=== PATIENT | male | born 1950 | race Caucasian/White ===

== ENCOUNTER 2022-12-26 11:57 | Inpatient (IN) | payer MEDICARE, SELFPAY ==
[2022-12-26] VITALS (12 sets, daily range): BP systolic 121–189; BP diastolic 52–108; PULSE 56–101; RESP 18–32; TEMP 36.1–36.9; O2SAT 96–100; BMI 26.3
--- NOTE | 2022-12-26 11:58 | XR_ITS ---
WS: [id number] XR chest 1V portable [id number] REASON FOR EXAM: dyspnea/cough FINDINGS: Mild tortuosity of the thoracic aorta with normal heart size. Calcified granulomatous disease in both hemithoraces. No active pulmonary parenchymal or pleural disease is identified. No significant abnormality of the bony thorax. IMPRESSION: No acute chest abnormality.
[2022-12-26 12:13] LABS: Basophils % 0.5 %; Eosinophils % 0.3 %; Hematocrit 39.3 % (37-53); Lymphocytes # 1.1 10^3/uL (0.8-4.8); Lymphocytes % 19.7 %; Mean Corpuscular HGB Conc 33.8 g/dL (30-55); Mean Corpuscular Hemoglobin 34.4 pg (27-33); Mean Corpuscular Volume 101.6 fl (82-101); Mean Platelet Volume 10.9 fL (7.4-10.4); Monocytes # 0.3 10^3/uL (0.2-0.9); Monocytes % 5.9 %; Neutrophils % 73.3 %; Nucleated Red Blood Cells % 0 %; Platelet Count 187 10^3/cmm (157-399); Red Blood Count 3.87 10^6/uL (3.85-5.65); White Blood Count 5.74 10^3/uL (3.29-11.43)
--- NOTE | 2022-12-26 12:19 | ECG_ITS ---
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 Measurements Intervals [place] Rate: 54 P: 58 [place]: 202 QRS: 34 QRSD: 79 T: 40 QT: 487 QTc: 462 Interpretive Statements SINUS BRADYCARDIA SEPTAL MYOCARDIAL INFARCTION , OF INDETERMINATE AGE [40+ ms Q WAVE IN V1/V2] No previous ECG available for comparison Electronically Signed On 12-26-2022 19:07:24 CDT by Brooke Ribeiro M.D. [id number]
[2022-12-26 12:37] LABS: Alanine Aminotransferase 109 U/L (0-41); Albumin Level 4.4 g/dL (3.5-5.2); Alkaline Phosphatase 43 U/L (40-130); Aspartate Amino Transferase 151 U/L (0-40); Blood Urea Nitrogen 19 mg/dL (8-23); Calcium 9.2 mg/dL (8.5-10.5); Carbon Dioxide 16 mmol/L (22-29); Chloride 101 mmol/L (98-107); Globulin 2.7 g/dL (1.3-4.6); Glucose 164 mg/dL (65-115); Osmolality Calculated 294 mOsm/kg (285-295); Sodium 139 mmol/L (136-145); Total Bilirubin 0.5 mg/dL (0.15-1.2); Total Protein 7.1 g/dL (6.6-8.7)
[2022-12-26 12:40] LABS: Troponin(5th) Baseline 18 ng/L (0-15)
--- NOTE | 2022-12-26 12:45 | PC.NURSE ---
pt had urge to defecate, bloody mucus in commode
--- NOTE | 2022-12-26 12:48 | PC.PHAR ---
pt states he takes care of his own medications-pt states he stop taking his amlodipine 2.5mg daily about 4 months ago ext shows last filled 04/28/22 90d/s-pt states he is only taking the medications entered
[2022-12-26 13:14] LABS: Thyroid Stimulating Hormone 4.62 uIU/mL (0.27-4.20)
--- NOTE | 2022-12-26 13:17 | CT_ITS ---
WS: [id number] CT ABDOMEN PELVIS TECHNIQUE: Contrast-enhanced CT of the abdomen and pelvis with coronal and sagittal reformatted image s. CLINICAL INFORMATION: abd pain COMPARISON: None. DLP: 653.[address] scans at [facility] use at least one of these dose optimization techniques: automated e xposure control; mA and/or kV adjustment per patient size (includes targeted exams where dose is matc hed to clinical indication); or iterative reconstruction. FINDINGS: Mild diffuse wall thickening and enhancement involving the sigmoid colon with surrounding induration suspicious for colitis. This extends to the rectum. Additional mild submucosal enhancement involving the LEFT colon and splenic flexure. Recommend correlation for colitis. Small amount of fluid in the p minoo about the sigmoid colon. Diffuse fatty filtration of the liver. Hepatomegaly. Normal spleen. Tiny esophageal hiatal hernia wit h fluid distended stomach with air-fluid levels. No evidence of high-grade obstruction. Portal vein a nd splenic vein are patent. Fatty atrophy of the pancreas. Normal gallbladder. Normal caliber abdomin al aorta. Celiac and SMA are patent. Thickening of the LEFT adrenal gland. RIGHT adrenal gland is normal. No hydronephrosis. Normal renal parenchymal enhancement. A few tiny renal cysts. Urine distended bladder. Prostate measures 3.9 cm. Tiny fat-containing umbilical hernia. Small fat-co ntaining LEFT inguinal hernia. Lung bases are well aerated. A few small nodules in the LEFT lower lobe the largest measuring 6 mm. A few small noncalcified nodules in the RIGHT middle lobe partially visualized. RIGHT lower lobe nodul e measuring 7 mm. Additional RIGHT lower lobe nodule along the diaphragm measuring 6.5 mm. Chronic spondylolysis L5-S1 with slight anterolisthesis. IMPRESSION: 1. Diffuse wall thickening with enhancement and surrounding induration involving the sigmoid colon e xtending to the rectum suspicious for proctocolitis. 2. Less prominent thickening and enhancement involving the LEFT descending colon and splenic flexure . 3. No evidence of small or large bowel obstruction. 4. Hepatomegaly diffuse fatty infiltration. 5. A few small noncalcified nodules in the lung bases largest measuring 7 mm. This can be followed u p with chest CT. 6. No other acute findings.
[2022-12-26] MEDS: sodium chloride 0.9% 1,000 ML 999 ML IV ×2 (13:22→15:21)
--- NOTE | 2022-12-26 13:47 | ED_ITS ---
HPI - Syncope General: Chief Complaint: Syncope Stated Complaint: syncopal episode Time Seen by Provider: 12/26/22 11:57 Source: patient Mode of arrival: EMS History of Present Illness: 72-year-old male presents emergency room with syncope. He had a syncopal episode did not any symptoms prior. No seizure-like activity was reported by bystanders he fell did not strike his head has not had any vomiting since then his vision has been normal no focal neurologic deficits. After this episode he had bright red blood per rectum with a bowel movement has not had any recurrence since. Denies chest pain or shortness of breath. He is having some mild abdominal cramping. MD complaint: loss of consciousness Onset (ago): hour(s) Prodromal symptoms: none Witnessed: Yes - by Bystander Associated symptoms: Reports abdominal pain (Abdominal cramping); Deny chest pain, fever(s), headache(s), lightheadedness, nausea, short of breath, vertigo or weakness Treatments prior to arrival: none Review of Systems Const: Denies: fever(s), chills, fatigue or malaise ENMT: Denies: throat pain, ear or mastoid pain, nasal discharge or nasal congestion Card: Denies: chest pain, palpitations, edema, lightheadedness, dyspnea on exertion or orthopnea Resp: Denies: dyspnea, productive cough or non-productive cough GI: Reports: abdominal pain (Abdominal cramping); Denies: nausea, vomiting, hematemesis, coffee ground emesis, diarrhea, constipation, bloating, hematochezia or melena : Denies: flank pain, dysuria, urinary frequency or urinary urgency Skin/Breast: Denies: rash or pruritus Neuro: Denies: headache(s) or vertigo [facility] ED PFSH: Medical History Alcohol abuse Hypertension Physical Exam Const: GENERAL APPEARANCE: cooperative and comfortable ORIENTATION/CONSCIOUSNESS: Yes awake, Yes oriented to person, Yes oriented to place and Yes oriented to time HENMT: COMMON NORMALS: normocephalic, atraumatic and hearing grossly normal bilaterally HEAD & SCALP: normocephalic and atraumatic Resp: COMMON NORMALS: normal respiratory effort, No retractions, No use of accessory muscles and clear to auscultation bilaterally AUSCULTATION: clear to auscultation bilaterally Cardio: COMMON NORMALS: regular rate, regular rhythm and No murmurs present (Cardio) RATE: regular rate RHYTHM: regular rhythm GI: COMMON NORMALS: Soft to palpation and No hepatosplenomegaly present AUSCULTATION: Yes normoactive bowel sounds PALPATION: Yes Soft to palpation, No Tenderness to palpation present (GI), No Guarding due to palpation present (GI) and Yes No hepatosplenomegaly present Extremity: COMMON NORMALS: normal to inspection, capillary refill normal, no clubbing, cyanosis or edema, no calf tenderness and no pedal edema Neuro: SENSORIUM/ORIENTATION: Yes oriented to person, Yes oriented to place and Yes oriented to time Skin: COMMON NORMALS: no rashes or lesions noted GENERAL SKIN EXAM: no rashes or lesions noted Course Vital Signs: Vital signs: Vital Signs Temperature 98.8 F 12/28/22 04:00 Pulse Rate 81 12/28/22 12:43 Respiratory Rate 16 12/28/22 12:43 Blood Pressure 153/93 12/28/22 12:43 Pulse Oximetry 98 12/28/22 12:43 Oxygen Delivery Me thod Room Air 12/28/22 12:00 MDM - Syncope Medical Decision Making Patient has syncopal episode without significant prodromal symptoms. He has mild relative bradycardia however he is generally seems to be asymptomatic of that his blood pressure is actually slightly elevated. Labs significant for transaminitis but he does drink fairly regularly which is likely the cause. Admit for syncope bradycardia. Discussed with Dr. Thakkar orders written Medical Records I reviewed the patient's medical records. Lab Data I reviewed the patient's lab results. 12/28/22 03:18 12/28/22 03:18 Radiology Impressions Liver Ultrasound 12/26/22 17:20 IMPRESSION: Fatty liver. Laboratory Results WBC 5.74 10^3/uL (3.29-11.43) 12/26/22 12:04 RBC 3.87 10^6/uL (3.85-5.65) 12/26/22 12:04 Hgb 13.30 g/dL (11.27-16.99) 12/26/22 12:04 Hct 39.3 % (37-53) 12/26/22 12:04 MCV 101.6 fl (82-101) H 12/26/22 12:04 MCH 34.4 pg (27-33) H 12/26/22 12:04 MCHC 33.8 g/dL (30-55) 12/26/22 12:04 RDW 12.0 % (12.1-15.1) L 12/26/22 12:04 Plt Count 187 10^3/cmm (157-399) 12/26/22 12:04 MPV 10.9 fL (7.4-10.4) H 12/26/22 12:04 Neut % (Auto) 73.3 % 12/26/22 12:04 Lymph % (Auto) 19.7 % 12/26/22 12:04 [place] % (Auto) 5.9 % 12/26/22 12:04 Eos % (Auto) 0.3 % 12/26/22 12:04 Baso % (Auto) 0.5 % 12/26/22 12:04 Neut # (Auto) 4.20 10^3/uL (1.8-7.7) 12/26/22 12:04 Lymph # (Auto) 1.1 10^3/uL (0.8-4.8) 12/26/22 12:04 [place] # (Auto) 0.3 10^3/uL (0.2-0.9) 12/26/22 12:04 Eos # (Auto) 0.0 10^3/uL (0.0-0.8) 12/26/22 12:04 Baso # (Auto) 0.0 10^3/uL (0.0-0.1) 12/26/22 12:04 Nucleated RBC % (auto) 0 % 12/26/22 12:04 Nucleated RBCs # 0.0 /100WBC 12/26/22 12:04 Sodium 139 mmol/L (136-145) 12/26/22 12:04 Potassium 4.0 mmol/L (3.5-5.1) 12/26/22 12:04 Chloride 101 mmol/L (98-107) 12/26/22 12:04 Carbon Dioxide 16 mmol/L (22-29) L 12/26/22 12:04 Anion Gap 26.0 (5-19) H 12/26/22 12:04 BUN 19 mg/dL (8-23) 12/26/22 12:04 Creatinine 1.3 mg/dL (0.7-1.2) H 12/26/22 12:04 GFR Calculation Not Reportable 12/26/22 12:04 Glucose 164 mg/dL (65-115) H 12/26/22 12:04 Calculated Osmolality 294 mOsm/kg (285-295) 12/26/22 12:04 Calcium 9.2 mg/dL (8.5-10.5) 12/26/22 12:04 Iron 72 ug/dL (59-158) 12/26/22 12:04 TIBC 239 mcg/dl 12/26/22 12:04 % Saturation 30.1 % (20-50) 12/26/22 12:04 Unsat Iron Binding 167 ug/dL (112-347) 12/26/22 12:04 Total Bilirubin 0.5 mg/dL (0.15-1.2) 12/26/22 12:04 AST 151 U/L (0-40) H 12/26/22 12:04 ALT 109 U/L (0-41) H 12/26/22 12:04 Alkaline Phosphatase 43 U/L (40-130) 12/26/22 12:04 Troponin T Baseline 18 ng/L (0-15) H 12/26/22 12:04 Troponin T 120 Minute 13.32 ng/L (0-15) 12/26/22 13:55 Delta Troponin T -4.68 ABS# (0-10) L 12/26/22 13:55 Total Protein 7.1 g/dL (6.6-8.7) 12/26/22 12:04 Albumin 4.4 g/dL (3.5-5.2) 12/26/22 12:04 Globulin 2.7 g/dL (1.3-4.6) 12/26/22 12:04 Vitamin B12 471 pg/mL (232-1245) 12/26/22 12:04 Procalcitonin 0.19 ng/mL (0-0.5) 12/26/22 12:04 TSH 4.62 uIU/mL (0.27-4.20) H 12/26/22 12:04 Free T4 1.07 ng/dL (0.82-1.77) 12/26/22 12:04 Free T3 2.3 PG/ML (2.0-4.4) 12/26/22 12:04 Ethyl Alcohol 151 mg/dL (0-10) H 12/26/22 13:55 Hepatitis A IgM Ab Non-reactive (Nonreactive) 12/26/22 12:04 Hep Bs Antigen Non-reactive (Nonreactive) 12/26/22 12:04 Hep Bs Antibody 3.5 (11.5-1000) L 12/26/22 12:04 Hep B Core Total Ab Non-reactive (Nonreactive) 12/26/22 12:04 Hepatitis C Antibody Non-reactive (Nonreactive) 12/26/22 12:04 HIV 1&2 Ab & HIV 1 Ag Non-reactive (Non-Reactiv) 12/26/22 12:04 HIV 1&2 Antibody Non-reactive (Non-Reactiv) 12/26/22 12:04 All radiology interpretation(s) finalized by discharge Discharge Plan Discharge Patient Disposition: Admitted As Inpatient Admit Provider: Kapil Thakkar Clinical Impression: Syncope and collapse, EITAN (acute kidney injury), Bright red blood per rectum, Transaminitis Condition: Stable Discharge Diet: Cardiac Discharge Activity: Resume usual activity and Increase activity as tolerated Coding Level of Care Code 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
--- NOTE | 2022-12-26 13:58 | ECG_ITS ---
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 Measurements Intervals [place] Rate: 66 P: 46 SD: 192 QRS: 18 QRSD: 77 T: 49 QT: 402 QTc: 423 Interpretive Statements SINUS RHYTHM SEPTAL MYOCARDIAL INFARCTION , PROBABLY OLD [40+ ms Q WAVE IN V1/V2] Compared to ECG 12/26/2022 12:19:59 Sinus bradycardia no longer present Myocardial infarct finding still present Electronically Signed On 12-26-2022 19:17:40 CDT by Brooke Ribeiro M.D. [id number]
[2022-12-26] MEDS: iohexol 350 mg/mL 500 mL Btl (per mL) IV (14:41)
[2022-12-26 14:48] LABS: Troponin 5 2HR 13.32 ng/L (0-15); Troponin 5 2HR Delta -4.68 ABS# (0-10)
--- NOTE | 2022-12-26 15:51 | PM.HP ---
Providers/Chief Complaint Admitting Physician: Kapil Thakkar MD Chief Complaint: syncopal episode History of Present Illness Rupert Garcia is a 72 year old male with past medical history of hypertension not taking any medication presented to the ER today after having episode of syncope and collapse while at work. As per the patient he has been on and off wobbly on his feet more so in the evening after work for last 1 week. Today while working without any prior aura he collapsed and as per bystanders he lost consciousness for around 5 minutes. Patient woke up after 5 minutes without any memory of losing consciousness but does remember falling down. Denies hitting his head or recent trauma. Denies any headache, chest pain, or other prior or after the event. Denies any bowel or bladder accidents. Denies any new medications. Patient does take nitro boost which is prescribed to him by someone online for high blood pressures but did not take that medication today. Similar event has never happened in the past. While in the ER he developed lower abdominal pain and since then whenever he is having abdominal cramps he passes flatus and with each flatus he is passing blood. He denies having any endoscopy or colonoscopy in the past. Denies any fever. Gives history of daily alcohol use with 4 cocktails shots every night. He gives history of consuming raw milk, raw kefir which he brought this week from from [employer]. Also states today morning he ate a very greasy beef meal from a shop where he usually does not eat from. Denies any other sick contacts. On presentation to the ER he was found to be bradycardic with heart rate down to low 50s with systolic blood pressure of more than 165 mmHg. Review of Systems General: Reports: 10 or more systems reviewed and unremarkable except in HPI and below Const: Denies: fever(s), chills, body aches, change in appetite, change in weight, malaise, night sweats, diaphoresis, change in sleep pattern, daytime sleepiness or snoring Eyes: Denies: change in vision, blurry vision, photophobia, eye discomfort or eye discharge ENMT: Denies: throat pain, enlarged tonsils, hoarseness, mouth pain, oral sores, dry mouth, tinnitus, nasal congestion or post nasal drip Card: Denies: chest pain, palpitations, irregular heart rhythm, edema, swelling of feet/ankles, lightheadedness, syncope, pre-syncope, dyspnea on exertion, orthopnea, leg pain with exertion or acrocyanosis Resp: Denies: dyspnea, productive cough, non-productive cough, wheezing, stridor, pain on inspiration, change in phlegm color, hemoptysis or chest congestion GI: Denies: abdominal pain, nausea, vomiting, hematemesis, coffee ground emesis, dysphagia, heartburn, diarrhea, constipation, bloating, GI cramping, change in bowel habits, pain on defecation, hematochezia or melena : Denies: flank pain, difficulty urinating, dysuria, urinary frequency, urinary urgency, urinary hesitancy, urinary dribbling, difficulty starting urination, change in urine stream, nocturia or hematuria Musc: Denies: neck pain, back pain, extremity pain, joint pain, joint swelling, joint redness, joint stiffness or limited range of motion Neuro: Denies: headache(s), numbness in extremities, weakness in extremities, sensory changes, lack of coordination, difficulty walking, frequent falls, dizziness, vertigo, confusion, Slurred speech present, difficulty communicating thoughts or seizure-like activity Psych: Denies: anxiety, depression, mood swings, panic attacks, hopelessness or irritability Endo: Denies: polyuria, polydipsia, tired all the time, cold intolerance, excessive sweating, flushing or heat intolerance Abdi/Lymph: Denies: easy bruising or easy bleeding All/Imm: Denies: tongue swelling, facial swelling or acute wheezing Medications/Allergies Home Medications Medication Instructions Recorded Confirmed Last Taken Type Carbon 60 0.5 tab PO DAILY 12/26/22 12/26/22 12/25/22 History Nitroboost 0.5 tab PO DAILY 12/26/22 12/26/22 12/25/22 History turmeric 400 mg capsule 200 mg PO DAILY 12/26/22 12/26/22 12/25/22 History Allergies Allergy/AdvReac Type Severity Reaction Status Date / Time No Known Allergies Allergy Verified 12/26/22 12:42 PFSH Acute PFSH: Medical History (Updated 12/26/22 @ 17:19 by Kapil Thakkar MD) Alcohol abuse Hypertension Vitals/I&O/Wt Last Vital Signs Temp 97.0 F L 12/26/22 12:07 Pulse 59 L 12/26/22 15:08 Resp 30 H 12/26/22 14:35 BP 167/52 12/26/22 15:08 Pulse Ox 100 12/26/22 15:08 O2 Del Method Room Air 12/26/22 14:35 12/26/22 12/26/22 12/26/22 06:59 14:59 22:59 Intake Total 1000 / 1000 Balance 1000 / 1000 Weight last 48 hrs Weight 85.729 kg Physical Exam Narrative: General: No acute distress, AO x3 HEENT: PERRLA, pupils bilaterally equal and reactive Chest: Normal vesicular breath sounds, no added sounds, equal good air entry bilaterally CVS: S1-S2 regular, soft pansystolic murmur at the apex, no tachycardia, no gallops, no rubs Abdomen: Soft, tenderness in periumbilical and bilateral abdominal lower quadrant, no organomegaly, bowel sounds present Neuro: No focal deficits, no facial deformity, AO x3, power 5/5 in all limbs Data 12/26/22 12:04 12/26/22 12:04 Other Labs: Laboratory Results WBC 5.74 10^3/uL (3.29-11.43) 12/26/22 12:04 RBC 3.87 10^6/uL (3.85-5.65) 12/26/22 12:04 Hgb 13.30 g/dL (11.27-16.99) 12/26/22 12:04 Hct 39.3 % (37-53) 12/26/22 12:04 MCV 101.6 fl (82-101) H 12/26/22 12:04 MCH 34.4 pg (27-33) H 12/26/22 12:04 MCHC 33.8 g/dL (30-55) 12/26/22 12:04 RDW 12.0 % (12.1-15.1) L 12/26/22 12:04 Plt Count 187 10^3/cmm (157-399) 12/26/22 12:04 MPV 10.9 fL (7.4-10.4) H 12/26/22 12:04 Neut % (Auto) 73.3 % 12/26/22 12:04 Lymph % (Auto) 19.7 % 12/26/22 12:04 [place] % (Auto) 5.9 % 12/26/22 12:04 Eos % (Auto) 0.3 % 12/26/22 12:04 Baso % (Auto) 0.5 % 12/26/22 12:04 Neut # (Auto) 4.20 10^3/uL (1.8-7.7) 12/26/22 12:04 Lymph # (Auto) 1.1 10^3/uL (0.8-4.8) 12/26/22 12:04 [place] # (Auto) 0.3 10^3/uL (0.2-0.9) 12/26/22 12:04 Eos # (Auto) 0.0 10^3/uL (0.0-0.8) 12/26/22 12:04 Baso # (Auto) 0.0 10^3/uL (0.0-0.1) 12/26/22 12:04 Nucleated RBC % (auto) 0 % 12/26/22 12:04 Nucleated RBCs # 0.0 /100WBC 12/26/22 12:04 Sodium 139 mmol/L (136-145) 12/26/22 12:04 Potassium 4.0 mmol/L (3.5-5.1) 12/26/22 12:04 Chloride 101 mmol/L (98-107) 12/26/22 12:04 Carbon Dioxide 16 mmol/L (22-29) L 12/26/22 12:04 Anion Gap 26.0 (5-19) H 12/26/22 12:04 BUN 19 mg/dL (8-23) 12/26/22 12:04 Creatinine 1.3 mg/dL (0.7-1.2) H 12/26/22 12:04 GFR Calculation Not Reportable 12/26/22 12:04 Glucose 164 mg/dL (65-115) H 12/26/22 12:04 Calculated Osmolality 294 mOsm/kg (285-295) 12/26/22 12:04 Calcium 9.2 mg/dL (8.5-10.5) 12/26/22 12:04 Iron 72 ug/dL (59-158) 12/26/22 12:04 TIBC 239 mcg/dl 12/26/22 12:04 % Saturation 30.1 % (20-50) 12/26/22 12:04 Unsat Iron Binding 167 ug/dL (112-347) 12/26/22 12:04 Total Bilirubin 0.5 mg/dL (0.15-1.2) 12/26/22 12:04 AST 151 U/L (0-40) H 12/26/22 12:04 ALT 109 U/L (0-41) H 12/26/22 12:04 Alkaline Phosphatase 43 U/L (40-130) 12/26/22 12:04 Troponin T Baseline 18 ng/L (0-15) H 12/26/22 12:04 Troponin T 120 Minute 13.32 ng/L (0-15) 12/26/22 13:55 Delta Troponin T -4.68 ABS# (0-10) L 12/26/22 13:55 Total Protein 7.1 g/dL (6.6-8.7) 12/26/22 12:04 Albumin 4.4 g/dL (3.5-5.2) 12/26/22 12:04 Globulin 2.7 g/dL (1.3-4.6) 12/26/22 12:04 Vitamin B12 471 pg/mL (232-1245) 12/26/22 12:04 Procalcitonin 0.19 ng/mL (0-0.5) 12/26/22 12:04 TSH 4.62 uIU/mL (0.27-4.20) H 12/26/22 12:04 Free T4 1.07 ng/dL (0.82-1.77) 12/26/22 12:04 Free T3 2.3 PG/ML (2.0-4.4) 12/26/22 12:04 Hepatitis A IgM Ab Non-reactive (Nonreactive) 12/26/22 12:04 Hep Bs Antigen Non-reactive (Nonreactive) 12/26/22 12:04 Hep Bs Antibody 3.5 (11.5-1000) L 12/26/22 12:04 Hep B Core Total Ab Non-reactive (Nonreactive) 12/26/22 12:04 Hepatitis C Antibody Non-reactive (Nonreactive) 12/26/22 12:04 CT Abd/Pel: Radiologist's impression: IMPRESSION: 1.? Diffuse wall thickening with enhancement and surrounding induration involving the sigmoid colon extending to the rectum suspicious for proctocolitis. 2.? Less prominent thickening and enhancement involving the LEFT descending colon and splenic flexure. 3.? No evidence of small or large bowel obstruction. 4.? Hepatomegaly diffuse fatty infiltration. 5.? A few small noncalcified nodules in the lung bases largest measuring 7 mm. This can be followed up with chest CT. 6.? No other acute findings. A&P Assessment and plan (1) Syncope and collapse: Unknown etiology. Could be vasovagal given colitis and bright blood per rectum while in the ER versus secondary to bradycardia. Patient does take nitro boost for high blood pressure so cannot rule out orthostatic hypotension though denies taking medications today. Neurological cause less likely. Does not have localized weakness or gives history of seizure-like activity. Check echocardiogram. Telemetry monitoring. Troponin cycle, check TSH, vitamin B12, folate levels. Check alcohol level, urine drug screen. IV fluids with normal saline at 100 cc/h. Monitor blood pressures. (2) Colitis: As seen on CT abdomen pelvis with bright blood blood rectum. Check stool studies. Monitor hemoglobin. Zosyn empirically for now. IV fluids as above. Morphine 2 mg every 4 hours as needed for pain (3) Bright red blood per rectum: Once colitis settles patient would benefit from outpatient colonoscopy. (4) Abdominal cramping, bilateral lower quadrant: (5) Hypertension: Goal blood pressure less than 140/90 mmHg. Counseled patient against using carbon and nitro boost. Start on amlodipine 10 mg oral daily. Uptitrate as per goal blood pressures. (6) Alcohol abuse: Daily for shortness of cocktail at home. Denies any history of alcohol withdrawal. [facility] Check alcohol level. Oral folic acid thiamine. (7) Transaminitis: Most likely in setting of daily alcohol use. Check hepatitis panel, HIV. (8) EITAN (acute kidney injury): Do not have baseline creatinine. Creatinine currently 1.3. Could be in setting of dehydration. Fluid as above. Medical reconstruction done for nephrotoxic drugs. Monitor BMP daily. (9) High anion gap metabolic acidosis: Most likely in setting of EITAN and chronic alcohol use. Fluid as above. Monitor BMP daily. (10) Bradycardia: Plan Full code Clear liquid diet Protonix for PUD prophylaxis Heparin 5000 every 8 hourly for DVT prophylaxis. Patient does have bright blood per rectum for now. We will continue to monitor. If has significant drop in hemoglobin. We will stop prophylaxis. Attestations Medical Necessity Statement*: Admission for more than 2 midnights for management of colitis with bright blood per rectum, further evaluation syncope with collapse Diagnoses Syncope and collapse R55 Colitis K52.9 Bright red blood per rectum K62.5 Abdominal cramping, bilateral lower quadrant R10.31; R10.32 Hypertension I10 Alcohol abuse F10.10 Transaminitis R74.01 EITAN (acute kidney injury) N17.9 High anion gap metabolic acidosis E87.29 Bradycardia R00.1
--- NOTE | 2022-12-26 15:55 | USCV_ITS ---
Rupert Garcia Age: 72 Gender: M : 1950 Exam Date: 12/26/2022 16:53 Ordering Phys: Kapil Thakkar MD Technologist: Armando Harris [place] [facility] [place]: chest pain BP: 180 / 80 HR: 69 Rhythm: Sinus Technical Quality: Adequate MEASUREMENTS (Male / Female) Normal Values 2D ECHO LV Diastolic Diameter PLAX 3.4 cm 4.2 - 5.9 / 3.9 - 5.3 cm LV Systolic Diameter PLAX 2.5 cm IVS Diastolic Thickness 1.4 cm 0.6 - 1.0 / 0.6 - 0.9 cm IVS Systolic Thickness 1.8 cm LVPW Diastolic Thickness 1.4 cm 0.6 - 1.0 / 0.6 - 0.9 cm LVPW Systolic Thickness 1.6 cm LVOT Diameter 2.0 cm LV Ejection Fraction 2D Teich 55.9 % LV Ejection Fraction MOD 2C 80.0 % LV Ejection Fraction 2C AL 79.3 % LA Diameter 4.1 cm IVC Diameter 1.6 cm M-MODE Aortic Annulus Diameter 3.4 cm LA Ao Ratio MM 1.3 MV E Point Septal Separation 0.7 cm DOPPLER AV Peak Velocity 134.0 cm/s LVOT Peak Velocity 110.0 cm/s AV Area Cont Eq vti 2.6 cm squared AV Area Cont Eq pk 2.6 cm squared MV Area PHT 2.7 cm squared Mitral E to A Ratio 0.8 MV E' Velocity 36.0 cm/s Mitral E to MV E' Ratio 8.4 Mitral E to LV E' Lateral Ratio 9.7 Mitral E to LV E' Septal Ratio 7.5 TR Peak Velocity 137.7 cm/s TR Peak Gradient 7.6 mmHg TV Peak E Velocity 108.0 cm/s Right Atrial Pressure 3.0 mmHg Pulmonary Artery Systolic Pressu 10.6 mmHg RV Acceleration Time 0.1 s FINDINGS Left Ventricle Left ventricle is normal size. LV systolic function is normal with EF 60-65%. No regional wall motion abnormalities are seen. Grade 1 diastolic dysfunction Right Ventricle Normal in size and function Right Atrium Normal in size Left Atrium Normal in size Mitral Valve Structurally normal mitral valve. Mild mitral regurgitation Aortic Valve Aortic valve thickening. No significant stenosis or regurgitation. Tricuspid Valve Trace tricuspid regurgitation. Insufficient TR jet to calculate RVSP. Pulmonic Valve Not well-visualized Pericardium Normal Aorta Normal in size IVC Appears to be normal CONCLUSIONS LV systolic function is normal with EF of 60-65% Grade 1 diastolic dysfunction Mild mitral regurgitation Trace tricuspid regurgitation No comparison studies are available. Clay Salguero MD (Electronically Signed) Final Date: 27 December 2022 11:27 S
[2022-12-26] MEDS: pantoprazole 40 mg SDV IVP (16:25)
[2022-12-26] MEDS: piperacillin-tazobactam 3.375 GM in sodium chloride 0.9% (plus) 50 ML IV (16:25)
[2022-12-26] MEDS: amlodipine 10 mg Tablet PO (16:28)
[2022-12-26] MEDS: heparin 5,000 unit/mL INJ 1 mL 5000 UNIT SUBCUT (16:28)
[2022-12-26] MEDS: sodium chloride 0.9% 1,000 ML 100 ML IV (16:29)
[2022-12-26 16:41] LABS: Iron 72 ug/dL (59-158); Percent Saturation 30.1 % (20-50); Total Iron Binding Capacity 239 mcg/dl; Unsaturated Iron Binding 167 ug/dL (112-347)
[2022-12-26 16:45] LABS: Free T4 Free Thyroxine 1.07 ng/dL (0.82-1.77); Procalcitonin 0.19 ng/mL (0-0.5); T3 Free 2.3 PG/ML (2.0-4.4); Vitamin B12 471 pg/mL (232-1245)
[2022-12-26 16:47] LABS: Hepatitis A Antibody IgM Non-Reactive (Nonreactive); Hepatitis B Core AB, Total Non-Reactive (Nonreactive); Hepatitis B Surface AB 3.5 (11.5-1000); Hepatitis B Surface Antigen Non-Reactive (Nonreactive); Hepatitis C Virus Antibody Non-Reactive (Nonreactive)
--- NOTE | 2022-12-26 17:20 | USR_ITS ---
PROCEDURE INFORMATION: Exam: US Abdomen, Limited; Right Upper Quadrant Exam date and time: 12/26/2022 5:47 PM Age: 72 years old Clinical indication: Pain; Other: Transaminitis TECHNIQUE: Imaging protocol: Real time ultrasound of the abdomen with image documentation. Limited exam focused on the right upper quadrant. COMPARISON: CT abdomen pelvis w con* [id number] 12/26/2022 2:42 PM FINDINGS: Liver: Echogenic, consistent with fatty infiltration. Gallbladder: No gallstones. No gallbladder wall thickening or pericholecystic fluid. Negative sonographic Ragland's sign, as per the performing web producer. Biliary ducts: Normal. No stones. No dilation. Pancreas: Suboptimally visualized. Right kidney: No mass. No definite stones. No hydronephrosis. US/US liver [id number] IMPRESSION: Fatty liver.
[2022-12-26 17:39] LABS: Alcohol Level 151 mg/dL (0-10)
[2022-12-26 17:56] LABS: HIV 1 & 2 Antibody Non-Reactive (Non-Reactiv); HIV 1 & 2 Antigen Non-Reactive (Non-Reactiv)
[2022-12-26 17:57] LABS: Troponin 5 6HR 11.52 ng/L (0-15); Troponin 5 6HR Delta -6.48 ng/L (0-12)
[2022-12-26 21:09] LABS: Add Urine Microscopic? NO; Charge for UA Resulting for Rev
[2022-12-26 21:14] LABS: Blood Urine Neg (Negative); Glucose Urine UA Norm (Normal); Ketones Urine 2+ (Negative); Protein Urine Neg (Negative); Specific Gravity, Urine 1.015 (1.005-1.030); Urine Appearance Clear (CLEAR); Urine Color Yellow (Yellow); pH Urine 5 (5-7)
[2022-12-26 21:15] LABS: Bilirubin Urine Neg (Negative); Leukocyte Esterase Urine Negative (Negative); Nitrate Urine Negative (Negative); Urobilinogen Urine Neg (Negative)
[2022-12-26 21:23] LABS: Amphetamines Screen Urine Negative (Negative); Barbiturates Screen Urine Negative (Negative); Benzodiazepines Screen Urine Negative (Negative); Cocaine Screen Urine Negative (Negative); Opiate Screen Urine Negative (Negative); PCP Screen Urine Negative (Negative); THC Screen Urine Negative (Negative)
[2022-12-27] VITALS (8 sets, daily range): BP systolic 116–148; BP diastolic 74–87; PULSE 56–103; RESP 23–25; TEMP 36.7–37.3; O2SAT 94–97
[2022-12-27] MEDS: sodium chloride 0.9% 1,000 ML 100 ML IV (00:12)
[2022-12-27] MEDS: piperacillin-tazobactam 3.375 GM in sodium chloride 0.9% (plus) 50 ML IV ×3 (00:12→17:13)
[2022-12-27] MEDS: heparin 5,000 unit/mL INJ 1 mL 5000 UNIT SUBCUT ×3 (00:15→17:13)
[2022-12-27 03:57] LABS: Basophils % 0.1 %; Hematocrit 35.1 % (37-53); Lymphocytes # 0.7 10^3/uL (0.8-4.8); Mean Corpuscular HGB Conc 34.2 g/dL (30-55); Mean Corpuscular Hemoglobin 34.2 pg (27-33); Mean Platelet Volume 10.9 fL (7.4-10.4); Monocytes # 1.3 10^3/uL (0.2-0.9); Neutrophils # 10.83 10^3/uL (1.8-7.7); Neutrophils % 84.1 %; Nucleated Red Blood Cells % 0 %; Platelet Count 157 10^3/cmm (157-399); Red Blood Count 3.51 10^6/uL (3.85-5.65); Red Cell Distribution Width 12.2 % (12.1-15.1); White Blood Count 12.88 10^3/uL (3.29-11.43)
[2022-12-27 04:15] LABS: Alanine Aminotransferase 75 U/L (0-41); Albumin Level 3.9 g/dL (3.5-5.2); Alkaline Phosphatase 35 U/L (40-130); Anion Gap 14.7 (5-19); Aspartate Amino Transferase 79 U/L (0-40); Blood Urea Nitrogen 17 mg/dL (8-23); Calcium 8.3 mg/dL (8.5-10.5); Carbon Dioxide 21 mmol/L (22-29); Chloride 99 mmol/L (98-107); Creatinine Clr Calc Pharmacy 84.6225; Globulin 2.8 g/dL (1.3-4.6); Glucose 132 mg/dL (65-115); Magnesium 1.5 mg/dL (1.7-2.3); Osmolality Calculated 275 mOsm/kg (285-295); Phosphorus 3.9 mg/dL (2.5-4.5); Potassium 3.7 mmol/L (3.5-5.1); Sodium 131 mmol/L (136-145); Total Protein 6.7 g/dL (6.6-8.7)
[2022-12-27 04:16] LABS: Chol HDL Ratio 1.96 mg/dL (1.0-5.00); Cholesterol 202 mg/dL (0-200); HDL Cholesterol 103 mg/dL (60-100); LDL Cholesterol Calculated 86 mg/dL (50-129); Triglycerides 65 mg/dL (0-150); VLDL Cholestrol Calculation 13 mg/dL (0-30)
[2022-12-27 04:21] LABS: Estmated Average Glucose 94; Hemoglobin A1C 4.9 % (4.0-6.0)
[2022-12-27] MEDS: amlodipine 10 mg Tablet PO (08:47)
[2022-12-27] MEDS: multivitamin therapeutic Tablet 1 TAB PO (08:47)
[2022-12-27] MEDS: folic acid 1 mg Tablet PO (08:47)
[2022-12-27] MEDS: thiamine 100 mg Tablet PO (08:47)
--- NOTE | 2022-12-27 10:23 | ECG_ITS ---
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 Measurements Intervals [place] Rate: 59 P: 38 NE: 193 QRS: 12 QRSD: 93 T: 29 QT: 398 QTc: 396 Interpretive Statements SINUS BRADYCARDIA MINIMAL VOLTAGE CRITERIA FOR LVH, CONSIDER NORMAL VARIANT [MEETS CRITERIA IN ONE OF: R(aVL), S(V1), R(V5), R(V5/V6)+S(V1)] NONSPECIFIC T-WAVE ABNORMALITY Compared to ECG 12/26/2022 14:17:44 T-wave abnormality now present Sinus rhythm no longer present Myocardial infarct finding no longer present Electronically Signed On 12-27-2022 20:31:29 CDT by Clay Salguero M.D. [email or web address]
[2022-12-27] MEDS: magnesium sulfate premix 2 GM/50 ML PIGGYBACK IV (11:03)
[2022-12-27] MEDS: pantoprazole 40 mg SDV IVP ×2 (11:06→23:08)
--- NOTE | 2022-12-27 15:22 | PM.PN ---
Subjective Subjective: No acute events overnight. Today morning patient seen comfortably laying in bed. States abdominal pain has resolved. Denies any further cramping. Still having occasional episodes of blood per rectum with each bowel movement patient otherwise remained hemodynamically stable and afebrile. Still having episodes of sinus bradycardia with heart rate going down to mid 50s. Remains on room air. Blood work today shows mild leukocytosis up to 12.88, stable hemoglobin, CMP showing mild hyponatremia down to 131, closure of anion gap, A1c of 4.9, hypomagnesemia down to 1.5, mild improvement in transaminitis. Alcohol level yesterday found to be more than 151 Vitals/I&O/Wt Last Vital Signs Temp 98.0 F 12/27/22 03:50 Pulse 64 12/27/22 12:00 Resp 25 H 12/27/22 12:00 BP 129/74 12/27/22 12:00 Pulse Ox 94 12/27/22 12:00 O2 Del Method Room Air 12/27/22 12:00 12/27/22 12/27/22 12/27/22 06:59 14:59 22:59 Intake Total 821.667 / 2991.667 1820 / 1820 Output Total 200 / 200 Balance 821.667 / 1431.177 1840 / 1620 Weight last 48 hrs Weight 85.729 kg Physical Exam Narrative: General: No acute distress, AO x3 HEENT: PERRLA, pupils bilaterally equal and reactive Chest: Normal vesicular breath sounds, no added sounds, equal good air entry bilaterally CVS: S1-S2 regular, soft pansystolic murmur at the apex, no tachycardia, no gallops, no rubs Abdomen: Soft, tenderness in periumbilical and bilateral abdominal lower quadrant, no organomegaly, bowel sounds present Neuro: No focal deficits, no facial deformity, AO x3, power 5/5 in all limbs Data 12/27/22 03:36 12/27/22 03:36 A&P Assessment and plan (1) Syncope and collapse: Most likely in setting of alcohol use. Alcohol level on admission more than 151. As per patient last alcoholic drink was the night prior. Could be vasovagal given colitis and bright blood per rectum while in the ER versus secondary to bradycardia. Patient does take nitro boost for high blood pressure so cannot rule out orthostatic hypotension though denies taking medications today. Neurological cause less likely. Does not have localized weakness or gives history of seizure-like activity. Echocardiogram results appreciated for no regional wall motion abnormality, no structural abnormality Telemetry monitoring. Stop IV fluids. Patient tolerating oral well for now. Monitor blood pressures. (2) Colitis: .As seen on CT abdomen pelvis with bright blood blood rectum. Stool studies sent out. Hemoglobin stable. Continue with Zosyn empirically for now. Morphine 2 mg every 4 hours as needed for pain. Protonix 40 mg twice daily (3) Bright red blood per rectum: Once colitis settles patient would benefit from outpatient colonoscopy. (4) Hypertension: Goal blood pressure less than 140/90 mmHg. Counseled patient against using carbon and nitro boost. Blood pressure is better controlled. Continue with amlodipine 10 mg oral daily. (5) Alcohol abuse: Daily for shortness of cocktail at home. Denies any history of alcohol withdrawal. [facility] protocol Alcohol level 151 On admission. Counseled patient in detail about alcohol cessation use. He verbalizes understanding. Oral folic acid thiamine. (6) Hyponatremia: Cannot rule out mild SIADH in setting of IV fluids. IV fluids stopped. Continue with monitoring sodium levels daily for now. (7) Transaminitis: Most likely in setting of daily alcohol use. Hepatitis panel, HIV negative. (8) EITAN (acute kidney injury): Resolved. Most likely in setting of dehydration. Stopping fluid as above. Medical reconstruction done for nephrotoxic drugs. Monitor BMP daily. (9) High anion gap metabolic acidosis: Resolved. (10) Bradycardia: (11) Abdominal cramping, bilateral lower quadrant: Plan Full code Clear liquid diet Protonix for PUD prophylaxis Heparin 5000 every 8 hourly for DVT prophylaxis. Patient does have bright blood per rectum for now. We will continue to monitor. If has significant drop in hemoglobin. We will stop prophylaxis. Attestations Medical Necessity Statement*: Requires further hospitalization for management of colitis with bright blood per rectum, further evaluation of syncope with concerns for bradycardia and alcohol use Diagnoses Syncope and collapse R55 Colitis K52.9 Bright red blood per rectum K62.5 Hypertension I10 Alcohol abuse F10.10 Hyponatremia E87.1 Transaminitis R74.01 EITAN (acute kidney injury) N17.9 High anion gap metabolic acidosis E87.29 Bradycardia R00.1 Abdominal cramping, bilateral lower quadrant R10.31; R10.32
[2022-12-28] VITALS (55 sets, daily range): BP systolic 153–158; BP diastolic 85–93; PULSE 50–90; RESP 16–31; TEMP 37.1; O2SAT 94–99; BMI 26.4
[2022-12-28] MEDS: piperacillin-tazobactam 3.375 GM in sodium chloride 0.9% (plus) 50 ML IV ×2 (00:31→08:54)
[2022-12-28] MEDS: heparin 5,000 unit/mL INJ 1 mL 5000 UNIT SUBCUT ×2 (00:31→08:54)
[2022-12-28 04:48] LABS: Basophils % 0.3 %; Eosinophils % 0.2 %; Hematocrit 34.3 % (37-53); Lymphocytes # 0.8 10^3/uL (0.8-4.8); Lymphocytes % 7.6 %; Mean Corpuscular HGB Conc 33.8 g/dL (30-55); Mean Corpuscular Hemoglobin 34.3 pg (27-33); Mean Corpuscular Volume 101.5 fl (82-101); Monocytes # 1.1 10^3/uL (0.2-0.9); Monocytes % 10.4 %; Neutrophils # 8.47 10^3/uL (1.8-7.7); Neutrophils % 81.2 %; Nucleated Red Blood Cells % 0 %; Platelet Count 133 10^3/cmm (157-399); Red Blood Count 3.38 10^6/uL (3.85-5.65); Red Cell Distribution Width 12.1 % (12.1-15.1); White Blood Count 10.42 10^3/uL (3.29-11.43)
[2022-12-28 05:01] LABS: Alanine Aminotransferase 52 U/L (0-41); Albumin Level 3.5 g/dL (3.5-5.2); Alkaline Phosphatase 36 U/L (40-130); Anion Gap 12.5 (5-19); Aspartate Amino Transferase 49 U/L (0-40); Blood Urea Nitrogen 14 mg/dL (8-23); Calcium 8.6 mg/dL (8.5-10.5); Carbon Dioxide 24 mmol/L (22-29); Chloride 99 mmol/L (98-107); Glucose 105 mg/dL (65-115); Osmolality Calculated 275 mOsm/kg (285-295); Potassium 3.5 mmol/L (3.5-5.1); Sodium 132 mmol/L (136-145); Total Bilirubin 1.2 mg/dL (0.15-1.2); Total Protein 6.5 g/dL (6.6-8.7)
[2022-12-28] MEDS: thiamine 100 mg Tablet PO (08:53)
[2022-12-28] MEDS: amlodipine 10 mg Tablet PO (08:53)
[2022-12-28] MEDS: multivitamin therapeutic Tablet 1 TAB PO (08:53)
[2022-12-28] MEDS: folic acid 1 mg Tablet PO (08:53)
--- NOTE | 2022-12-28 10:40 | PM.DCS ---
Discharge Providers Date of Admission: 12/26/22 14:09 Date of Discharge: December 28, 2022 Attending Provider at Admission: Kapil Thakkar MD Attending Provider at Discharge: Kapil Thakkar MD Diagnoses at Discharge Discharge Diagnosis (1) Syncope and collapse: Status: Acute (2) Colitis: Status: Acute (3) Bright red blood per rectum: Status: Acute (4) Hypertension: Status: Acute (5) Alcohol abuse: Status: Acute (6) Hyponatremia: Status: Acute (7) Transaminitis: Status: Acute (8) EITAN (acute kidney injury): Status: Acute (9) High anion gap metabolic acidosis: Status: Acute (10) Bradycardia: Status: Acute (11) Abdominal cramping, bilateral lower quadrant: Status: Acute Reason for Visit Reason for Visit: syncopal episode Hospital Course Hospital Course Rupert Garcia is a 72 year old male with past medical history of hypertension not taking any medication presented to the ER today after having episode of syncope and collapse while at work.? As per the patient he has been on and off wobbly on his feet more so in the evening after work for last 1 week.? Today while working without any prior aura he collapsed and as per bystanders he lost consciousness for around 5 minutes.? Patient woke up after 5 minutes without any memory of losing consciousness but does remember falling down.? Denies hitting his head or recent trauma.? Denies any headache, chest pain, or other prior or after the event.? Denies any bowel or bladder accidents.? Denies any new medications.? Patient does take nitro boost which is prescribed to him by someone online for high blood pressures but did not take that medication today.? Similar event has never happened in the past.? While in the ER he developed lower abdominal pain and since then whenever he is having abdominal cramps he passes flatus and with each flatus he is passing blood.? He denies having any endoscopy or colonoscopy in the past.? Denies any fever.? Gives history of daily alcohol use with 4 cocktails shots every night. He gives history of consuming raw milk, raw kefir which he brought this week from from [employer].? Also states today morning he ate a very greasy beef meal from a shop where he usually does not eat from.? Denies any other sick contacts. On presentation to the ER he was found to be bradycardic with heart rate down to low 50s with systolic blood pressure of more than 165 mmHg. Patient was admitted to the hospital further evaluation and management of syncope in setting of bradycardia and bright blood per rectum with abdominal pain. On admission he was found to have an alcohol level of more than 150 along with acute kidney injury, hyponatremia and high anion gap metabolic acidosis. CT abdomen pelvis was done on admission which showed concerns for colitis. Stool studies were sent. Blood cultures during hospitalization remained negative. He was started on IV hydration and broad-spectrum antibiotics. It is believed syncope was in setting of alcohol intoxication along with ongoing colitis. During hospitalization patient did not have any further episodes and his heart rate remained stable. He was started on amlodipine for high blood pressures. Patient responded well to the treatment, his blood pressures have been a lot more stable, bradycardia has resolved, abdominal cramping and diarrhea has resolved. His hemoglobin remained stable during hospitalization. He has been discharged in likely stable condition with advised to take ciprofloxacin and Flagyl with IV antibiotics for next 7 days. He is advised to maintain his IV hydration with up to 1500 cc to 2 L of liquid daily. He is advised and counseled in detail to avoid consuming alcohol. He is to take amlodipine 10 mg daily for high blood pressure. He is to follow-up with his primary care provider within next 10 days. Patient should have a colonoscopy done within next 1 month. Physical Exam Narrative: General: No acute distress, AO x3 HEENT: PERRLA, pupils bilaterally equal and reactive Chest: Normal vesicular breath sounds, no added sounds, equal good air entry bilaterally CVS: S1-S2 regular, soft pansystolic murmur at the apex, no tachycardia, no gallops, no rubs Abdomen: Soft, tenderness in periumbilical and bilateral abdominal lower quadrant, no organomegaly, bowel sounds present Neuro: No focal deficits, no facial deformity, AO x3, power 5/5 in all limbs Discharge Data Studies Completed and Pending Completed Studies During Hospitalization Category Date Time Status CT abdomen pelvis w con* [id number] Stat Cat Scan 12/26/22 13:17 Completed XR chest 1V portable [id number] Stat Exams 12/26/22 11:58 Completed CV. echo complete* [id number] Routine Ultrasound 12/26/22 15:55 [place] liver [id number] Routine Ultrasound 12/26/22 17:20 Completed Pending at discharge Category Date Time Status Clostridium Difficile PCR Routine Lab 12/26/22 16:15 Received Lactoferrin Routine Lab 12/26/22 16:15 Received OVA and Parasites, Conc and PE Routine Lab 12/26/22 23:30 Received Salmonella / Shigella / Campy Routine Lab 12/26/22 23:30 Received Radiology Impressions Liver Ultrasound 12/26/22 17:20 IMPRESSION: Fatty liver. Echocardiogram: CONCLUSIONS ?LV systolic function is normal with EF of 60-65% ?Grade 1 diastolic dysfunction ?Mild mitral regurgitation ?Trace tricuspid regurgitation ?No comparison studies are available. ?Clay Salguero MD ?(Electronically Signed) ?Final Date:? ? ? 27 December 2022 ? 11:27 Laboratory Results WBC 10.42 10^3/uL (3.29-11.43) 12/28/22 03:18 RBC 3.38 10^6/uL (3.85-5.65) L 12/28/22 03:18 Hgb 11.60 g/dL (11.27-16.99) 12/28/22 03:18 Hct 34.3 % (37-53) L 12/28/22 03:18 MCV 101.5 fl (82-101) H 12/28/22 03:18 MCH 34.3 pg (27-33) H 12/28/22 03:18 MCHC 33.8 g/dL (30-55) 12/28/22 03:18 RDW 12.1 % (12.1-15.1) 12/28/22 03:18 Plt Count 133 10^3/cmm (157-399) L 12/28/22 03:18 MPV 12.0 fL (7.4-10.4) H 12/28/22 03:18 Neut % (Auto) 81.2 % 12/28/22 03:18 Lymph % (Auto) 7.6 % 12/28/22 03:18 [place] % (Auto) 10.4 % 12/28/22 03:18 Eos % (Auto) 0.2 % 12/28/22 03:18 Baso % (Auto) 0.3 % 12/28/22 03:18 Neut # (Auto) 8.47 10^3/uL (1.8-7.7) H 12/28/22 03:18 Lymph # (Auto) 0.8 10^3/uL (0.8-4.8) 12/28/22 03:18 [place] # (Auto) 1.1 10^3/uL (0.2-0.9) H 12/28/22 03:18 Eos # (Auto) 0.0 10^3/uL (0.0-0.8) 12/28/22 03:18 Baso # (Auto) 0.0 10^3/uL (0.0-0.1) 12/28/22 03:18 Nucleated RBC % (auto) 0 % 12/28/22 03:18 Nucleated RBCs # 0.0 /100WBC 12/28/22 03:18 Sodium 132 mmol/L (136-145) L 12/28/22 03:18 Potassium 3.5 mmol/L (3.5-5.1) 12/28/22 03:18 Chloride 99 mmol/L (98-107) 12/28/22 03:18 Carbon Dioxide 24 mmol/L (22-29) 12/28/22 03:18 Anion Gap 12.5 (5-19) 12/28/22 03:18 BUN 14 mg/dL (8-23) 12/28/22 03:18 Creatinine 0.8 mg/dL (0.7-1.2) 12/28/22 03:18 GFR Calculation Not Reportable 12/28/22 03:18 Glucose 105 mg/dL (65-115) 12/28/22 03:18 Estimat Average Glucose 94 12/27/22 03:36 Hemoglobin A1c 4.9 % (4.0-6.0) 12/27/22 03:36 Calculated Osmolality 275 mOsm/kg (285-295) L 12/28/22 03:18 Calcium 8.6 mg/dL (8.5-10.5) 12/28/22 03:18 Phosphorus 3.9 mg/dL (2.5-4.5) 12/27/22 03:36 Magnesium 1.5 mg/dL (1.7-2.3) L 12/27/22 03:36 Iron 72 ug/dL (59-158) 12/26/22 12:04 TIBC 239 mcg/dl 12/26/22 12:04 % Saturation 30.1 % (20-50) 12/26/22 12:04 Unsat Iron Binding 167 ug/dL (112-347) 12/26/22 12:04 Total Bilirubin 1.2 mg/dL (0.15-1.2) 12/28/22 03:18 AST 49 U/L (0-40) H 12/28/22 03:18 ALT 52 U/L (0-41) H 12/28/22 03:18 Alkaline Phosphatase 36 U/L (40-130) L 12/28/22 03:18 Troponin T Baseline 18 ng/L (0-15) H 12/26/22 12:04 Troponin T 120 Minute 13.32 ng/L (0-15) 12/26/22 13:55 Delta Troponin T -4.68 ABS# (0-10) L 12/26/22 13:55 Troponin T Hi Sens 6Hr 11.52 ng/L (0-15) 12/26/22 17:00 Troponin T Hi Sens 6Hr Delta -6.48 ng/L (0-12) L 12/26/22 17:00 Total Protein 6.5 g/dL (6.6-8.7) L 12/28/22 03:18 Albumin 3.5 g/dL (3.5-5.2) 12/28/22 03:18 Globulin 3.0 g/dL (1.3-4.6) 12/28/22 03:18 Triglycerides 65 mg/dL (0-150) 12/27/22 03:36 Cholesterol 202 mg/dL (0-200) H 12/27/22 03:36 LDL Cholesterol, Calc 86 mg/dL (50-129) 12/27/22 03:36 Total VLDL Cholesterol 13 mg/dL (0-30) 12/27/22 03:36 HDL Cholesterol 103 mg/dL (60-100) H 12/27/22 03:36 Cholesterol/HDL Ratio 1.96 mg/dL (1.0-5.00) 12/27/22 03:36 Vitamin B12 471 pg/mL (232-1245) 12/26/22 12:04 Folate 6.0 ng/mL (4.5-32.2) 12/27/22 03:36 Procalcitonin 0.19 ng/mL (0-0.5) 12/26/22 12:04 TSH 4.62 uIU/mL (0.27-4.20) H 12/26/22 12:04 Free T4 1.07 ng/dL (0.82-1.77) 12/26/22 12:04 Free T3 2.3 PG/ML (2.0-4.4) 12/26/22 12:04 Urine Color Yellow (Yellow) 12/26/22 21:00 Urine Appearance Clear (CLEAR) 12/26/22 21:00 Urine pH 5 (5-7) 12/26/22 21:00 Ur Specific [place] 1.015 (1.005-1.030) 12/26/22 21:00 Urine Protein Neg (Negative) 12/26/22 21:00 Urine Glucose (UA) Norm (Normal) 12/26/22 21:00 Urine Ketones 2+ (Negative) H 12/26/22 21:00 Urine Blood Neg (Negative) 12/26/22 21:00 Urine Nitrate Negative (Negative) 12/26/22 21:00 Urine Bilirubin Neg (Negative) 12/26/22 21:00 Urine Urobilinogen Neg mg/dL (Negative) 12/26/22 21:00 Ur Leukocyte Esterase Negative (Negative) 12/26/22 21:00 Urine Opiates Screen Negative ng/mL (Negative) 12/26/22 21:00 Ur Barbiturates Screen Negative ng/mL (Negative) 12/26/22 21:00 Ur Phencyclidine Scrn Negative ng/mL (Negative) 12/26/22 21:00 Ur Amphetamines Screen Negative ng/mL (Negative) 12/26/22 21:00 U Benzodiazepines Scrn Negative ng/mL (Negative) 12/26/22 21:00 Urine Cocaine Screen Negative ng/mL (Negative) 12/26/22 21:00 U Marijuana (THC) Screen Negative ng/mL (Negative) 12/26/22 21:00 Ethyl Alcohol 151 mg/dL (0-10) H 12/26/22 13:55 Hepatitis A IgM Ab Non-reactive (Nonreactive) 12/26/22 12:04 Hep Bs Antigen Non-reactive (Nonreactive) 12/26/22 12:04 Hep Bs Antibody 3.5 (11.5-1000) L 12/26/22 12:04 Hep B Core Total Ab Non-reactive (Nonreactive) 12/26/22 12:04 Hepatitis C Antibody Non-reactive (Nonreactive) 12/26/22 12:04 HIV 1&2 Ab & HIV 1 Ag Non-reactive (Non-Reactiv) 12/26/22 12:04 HIV 1&2 Antibody Non-reactive (Non-Reactiv) 12/26/22 12:04 Vitals Last Vital Signs Temp 98.8 F 12/28/22 04:00 Pulse 55 L 12/28/22 06:00 Resp 25 H 12/28/22 04:00 BP 153/93 12/28/22 04:00 Pulse Ox 99 12/28/22 04:00 O2 Del Method Room Air 12/28/22 04:00 Discharge Plan Discharge Patient Disposition: Home Condition: Stable Prescriptions: New amlodipine 10 mg Tablet 10 mg PO DAILY Qty: 30 0RF folic acid 1 mg Tablet 1 mg PO DAILY Qty: 30 0RF Thera 400 mcg Tablet 1 tab PO DAILY Qty: 30 0RF ciprofloxacin HCl 500 mg tablet 500 mg PO BID Qty: 14 0RF metronidazole 500 mg tablet 500 mg PO BID 7 Days Qty: 14 0RF Protonix 40 mg tablet,delayed release (DR/EC) 40 mg PO QAM 28 Days Qty: 28 0RF Continued turmeric 400 mg Capsule 200 mg PO DAILY Discontinued Carbon 60 0.5 tab PO DAILY Nitroboost 0.5 tab PO DAILY Discharge Orders: Discharge Order (Routine); Ordered 12/28/22 Ordered By: Kapil Thakkar Discharge Diet: Cardiac Discharge Activity: Resume usual activity and Increase activity as tolerated Patient Instructions: Ciprofloxacin (By mouth), Metronidazole (By mouth), Folic Acid (By mouth), Amlodipine (By mouth), Pantoprazole (By mouth) (Protonix), Acute Kidney Injury (DC), Hyponatremia (DC), Syncope (DC), Hypertension (DC), Colitis (ED), Opioid Safety Activity Restrictions/Additional Instructions: He was discharged on antibiotics which are ciprofloxacin and Flagyl with IV antibiotics for next 7 days. He is advised to maintain his IV hydration with up to 1500 cc to 2 L of liquid daily. He is advised and counseled in detail to avoid consuming alcohol. He is to take amlodipine 10 mg daily for high blood pressure. He is to follow-up with his primary care provider within next 10 days. Patient should have a colonoscopy done within next 1 month. Discharge Attestations Time Spent in Discharge Care*: greater than 30 min Specific Discharge Activities: educating patient, educating and/or supporting family/caregiver, discussing with pcp/other providers, discussing with shoe parts caser/social workers/dc planners, documenting/other paperwork and evaluating patient/reviewing data Status at Discharge: Cognitive status at discharge: cognitively intact, Behavioral status at discharge: cooperative, Functional status at discharge: independent ambulation, Overall status at discharge: patient is back to baseline Quality Metrics Clinical Quality Measures [ No reported AMI, CVA or VTE this stay] Coding Level of Care Code 48327 Total time (in minutes) for Discharge: 50 Diagnoses Syncope and collapse R55 Colitis K52.9 Bright red blood per rectum K62.5 Hypertension I10 Alcohol abuse F10.10 Hyponatremia E87.1 Transaminitis R74.01 EITAN (acute kidney injury) N17.9 High anion gap metabolic acidosis E87.29 Bradycardia R00.1 Abdominal cramping, bilateral lower quadrant R10.31; R10.32
[2022-12-28] MEDS: pantoprazole 40 mg SDV IVP (11:15)
--- NOTE | 2022-12-28 13:51 | PC.NURSE ---
Discharge Note Patient discharged to [home] via [ambulation] accompanied by [self]. Discharge instructions reviewed with patient and/or leasing representative. Mobile pharmacy medications and/or prescriptions provided. Belongings/home medications returned.
[2022-12-29 16:48] LABS: Clostridium Difficile PCR DETECTED (NOT DETECTED)
--- NOTE | 2022-12-31 14:17 | PC.SOCIAL ---
Dr. Thakkar requested patient be notified of C-Diff results and new prescription of vancomycin 250mg QID for two weeks. Spoke with patient's who verbalized understanding and states that she would like it sent to [facility] pharmacy. Prescription called in for patient at this time.
== END 2022-12-28 13:30 | disposition home or self-care (01) | DRG 392 ==
LOC: ER 13:53 → CSU 15:10
PROVIDERS: Admitting Provider Student in an Organized Health Care Education/Training Program; Emergency Provider Family Medicine; Visit Provider Student in an Organized Health Care Education/Training Program
DX: K52.9 Noninfective gastroenteritis and colitis, unspecified (principal); N17.9 Acute kidney failure, unspecified; E87.1 Hypo-osmolality and hyponatremia; E87.20 Acidosis, unspecified; R00.1 Bradycardia, unspecified; I10 Essential (primary) hypertension; W19.XXXA Unspecified fall, initial encounter; F10.129 Alcohol abuse with intoxication, unspecified; Y90.6 Blood alcohol level of 120-199 mg/100 ml; E83.42 Hypomagnesemia; R74.01 Elevation of levels of liver transaminase levels; E86.0 Dehydration
CPT/HCPCS: 36415; 71045; 74177; 76705; 80053; 80061; 80306; 80307; 81003; 82607; 82746; 83036; 83540; 83550; 83630; 83735; 84100; 84145; 84439; 84443; 84481; 84484; 85025; 86705; 86706; 86709; 86803; 87045; 87177; 87209; 87340; 87427; 87449; 87493; 87806; 93005; 93306; 94664; 96360; 96361; 96372; 96376; 99285; C9113; J1644; J2543; J3411; J3475; J7030; Q9967

== ENCOUNTER → 2024-08-31 09:19 | Outpatient (BNVA) | payer MEDICARE, SELFPAY | PROVIDERS: Family Provider Family Medicine; Visit Provider Family Medicine | DX: Z00.00 Encounter for general adult medical examination without abnormal findings (principal); R35.0 Frequency of micturition; Z13.6 Encounter for screening for cardiovascular disorders; Z51.81 Encounter for therapeutic drug level monitoring; Z91.018 Allergy to other foods; N17.9 Acute kidney failure, unspecified; E87.29 Other acidosis; R00.1 Bradycardia, unspecified | CPT/HCPCS: 80053; 80061; 84153; 85025; 86003; 86008 ==

== ENCOUNTER 2025-01-16 03:19 | Emergency (ER) | payer MEDICARE, SELFPAY ==
[2025-01-16 03:19] VITALS: BP 171/111; PULSE 94; RESP 16; TEMP 36.9; O2SAT 98; BMI 24.4
--- NOTE | 2025-01-16 03:30 | ECG_ITS ---
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 Measurements Intervals [place] Rate: 84 P: 29 IN: 169 QRS: -32 QRSD: 85 T: 24 QT: 363 QTc: 431 Interpretive Statements SINUS RHYTHM LEFT AXIS DEVIATION [QRS AXIS < -30] VOLTAGE CRITERIA FOR LVH [MEETS CRITERIA IN ONE OF: R(aVL), S(V1), R(V5), R(V5/V6)+S(V1)] ANTERIOR INFARCTION, NONACUTE Compared to ECG 12/27/2022 13:58:06 Left-axis deviation now present Sinus bradycardia no longer present T-wave abnormality no longer present POOR R WAVE PROGRESSION IS NEW Electronically Signed On 01-18-2025 21:46:45 CDT by Moses Nash M.D. [email or web address]
[2025-01-16 03:49] LABS: Hematocrit 39.0 % (37-53); Hemoglobin 13.30 g/dL (11.27-16.99); Mean Corpuscular HGB Conc 34.1 g/dL (30-55); Mean Corpuscular Hemoglobin 33.4 pg (27-33); Mean Corpuscular Volume 98.0 fl (82-101); Nucleated Red Blood Cells % 0 %; Platelet Count 122 10^3/cmm (157-399); Red Blood Count 3.98 10^6/uL (3.85-5.65); White Blood Count 6.02 10^3/uL (3.29-11.43)
--- NOTE | 2025-01-16 03:49 | W.ED.ALCOHOL ---
HPI - Alcohol General: Chief Complaint: Alcohol Stated Complaint: detox off alcohol Time Seen by Provider: 01/16/25 03:21 History of Present Illness: Patient is a male who reports detoxing from alcohol approximately several days ago. He states he had a 'bad reaction' to the detoxification process, which he believes may be alcohol withdrawal syndrome. The patient experienced hallucinations this morning, which prompted his visit to the emergency department. His encouraged him to seek medical attention early. Patient reports his last alcoholic drink was Thursday morning (3 days ago). He denies seizures or tremors currently, though he mentions having tremors during the initial detoxification period. Patient denies fever, cough, vomiting, or diarrhea. He reports occasional sneezing fits but considers them insignificant. Related Data Home Medications ?Medication ?Instructions ?Recorded ?Confirmed turmeric 400 mg capsule 200 mg PO DAILY 12/26/22 10/16/24 Previous Rx's ?Medication ?Instructions ?Recorded folic acid 1 mg tablet 1 mg PO DAILY #30 tabs 12/28/22 multivitamin with folic acid 400 1 tab PO DAILY #30 tabs 12/28/22 mcg tablet (Thera) epinephrine 0.3 mg/0.3 mL 0.3 mg (0.3 mL) IM Q20M PRN 09/09/24 injection, auto-injector (EpiPen anaphylaxis #2 ea 2-Evangelist) amlodipine 5 mg tablet 7.5 mg (1.5 x 5 mg) PO DAILY #135 01/12/25 tabs Allergies Allergy/AdvReac Type Severity Reaction Status Date / Time No Known Allergies Allergy Verified 12/26/22 12:42 [facility] ED PFSH: Medical History Hypertension Alcohol abuse Surgical History Hx of heart surgery Went through groin to grab a piece of the heart at age 7 Family History (Updated 07/14/24 @ 12:07 by Joey Alvarado MD) Father No problems noted. Brother , of cancer - Type unknown No problems noted. Mother , Age related No problems noted. 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[employer] - [employer] Physical Exam Const: COMMON NORMALS: no acute distress GENERAL APPEARANCE: cooperative; not ill appearing and not frail appearing HENMT: COMMON NORMALS: normocephalic, atraumatic and Normal external nose present HEAD & SCALP: normocephalic and atraumatic FACE & SINUS: normal facial exam and face symmetric NOSE: Normal external nose present Eye: COMMON NORMALS: Equal, round and reactive pupils present and EOMs intact bilaterally PUPIL: Yes Equal, round and reactive pupils present Neck/C-Spine: GENERAL: Yes trachea midline Chest: CHEST: Yes Symmetrical chest wall rise Resp: COMMON NORMALS: normal respiratory effort, No retractions, No use of accessory muscles and clear to auscultation bilaterally AUSCULTATION: clear to auscultation bilaterally Cardio: COMMON NORMALS: regular rate and regular rhythm RATE: regular rate RHYTHM: regular rhythm GI: COMMON NORMALS: Normal to inspection, nondistended, normoactive bowel sounds present Extremity: COMMON NORMALS: no pedal edema Neuro: ELLEN COMA SCALE: document GCS findings Lennon coma scale eye opening: Spontaneous Lennon coma scale verbal response: Orientated Ellen coma scale motor response: Obey commands Ellen coma scale total score: 15 SENSORY EXAM: Yes extremities (intact) Psych: COMMON NORMALS: speech normal SPEECH: Yes normal speech Skin: COMMON NORMALS: no rashes or lesions noted GENERAL SKIN EXAM: no rashes or lesions noted Course Vital Signs: Vital signs: Vital Signs Temperature 98.4 F 01/16/25 03:19 Pulse Rate 84 01/16/25 06:38 Respiratory Rate 16 01/16/25 03:19 Blood Pressure 158/113 01/16/25 06:38 Pulse Oximetry 99 01/16/25 06:38 Oxygen Delivery Me thod Room Air 01/16/25 03:19 MDM - Alcohol Medical Decision Making The patient is hypertensive here. He is nontachycardic. He is able to answer all questions appropriately. His CBC shows a platelet count of 122 is otherwise normal. His potassium is 3.2 and will be repleted. His bicarbonate level is 19. He has received 2 L of fluid. His urine has cleared. His bilirubin was 2 initially. Because of this, CT was performed. Shows no acute findings. No biliary dilatation. He is feeling improved. He is essentially over his alcohol withdrawal at this point 3 days from his last intake. He wants to consider alcohol rehabilitation. His would really like him to go as well. We will ask our case filler to discuss options with them. In the meantime, he will be discharged. He is stable at this point. Lab Data 01/16/25 03:25 01/16/25 03:25 Radiology Impressions Abdomen/Pelvis CT 01/16/25 04:33 IMPRESSION: 1. No acute findings. 2. Nonspecific scattered bilateral pulmonary nodules. Dedicated evaluation with CT chest recommended. 3. Stable left adrenal mass, likely representing adenoma. 4. Ill-defined foci of decreased attenuation in the liver, likely representing focal fatty infiltration. Further evaluation with contrast enhanced abdomen MRI should be considered in the adequate clinical setting. Laboratory Results WBC 6.02 10^3/uL (3.29-11.43) 01/16/25 03:25 RBC 3.98 10^6/uL (3.85-5.65) 01/16/25 03:25 Hgb 13.30 g/dL (11.27-16.99) 01/16/25 03:25 Hct 39.0 % (37-53) 01/16/25 03:25 MCV 98.0 fl (82-101) 01/16/25 03:25 MCH 33.4 pg (27-33) H 01/16/25 03:25 MCHC 34.1 g/dL (30-55) 01/16/25 03:25 RDW 13.2 % (12.1-15.1) 01/16/25 03:25 Plt Count 122 10^3/cmm (157-399) L 01/16/25 03:25 MPV 11.1 fL (7.4-10.4) H 01/16/25 03:25 Neut % (Auto) 73.3 % 01/16/25 03:25 Lymph % (Auto) 7.8 % 01/16/25 03:25 [place] % (Auto) 18.1 % 01/16/25 03:25 Eos % (Auto) 0.2 % 01/16/25 03:25 Baso % (Auto) 0.3 % 01/16/25 03:25 Neut # (Auto) 4.41 10^3/uL (1.8-7.7) 01/16/25 03:25 Lymph # (Auto) 0.5 10^3/uL (0.8-4.8) L 01/16/25 03:25 [place] # (Auto) 1.1 10^3/uL (0.2-0.9) H 01/16/25 03:25 Eos # (Auto) 0.0 10^3/uL (0.0-0.8) 01/16/25 03:25 Baso # (Auto) 0.0 10^3/uL (0.0-0.1) 01/16/25 03:25 Nucleated RBC % (auto) 0 % 01/16/25 03:25 Nucleated RBCs # 0.0 /100WBC 01/16/25 03:25 Sodium 131 mmol/L (136-145) L 01/16/25 03:25 Potassium 3.2 mmol/L (3.5-5.1) L 01/16/25 03:25 Chloride 91 mmol/L (98-107) L 01/16/25 03:25 Carbon Dioxide 19 mmol/L (22-29) L 01/16/25 03:25 Anion Gap 24.2 (5-19) H 01/16/25 03:25 BUN 16 mg/dL (8-23) 01/16/25 03:25 Creatinine 0.6 mg/dL (0.7-1.2) L 01/16/25 03:25 GFR Calculation Not Reportable 01/16/25 03:25 Glucose 121 mg/dL (65-115) H 01/16/25 03:25 Calculated Osmolality 274 mOsm/kg (285-295) L 01/16/25 03:25 Calcium 9.7 mg/dL (8.5-10.5) 01/16/25 03:25 Total Bilirubin 2.1 mg/dL (0.15-1.2) H 01/16/25 03:25 AST 116 U/L (0-40) H 01/16/25 03:25 ALT 62 U/L (0-41) H 01/16/25 03:25 Alkaline Phosphatase 44 U/L (40-130) 01/16/25 03:25 Total Protein 7.9 g/dL (6.6-8.7) 01/16/25 03:25 Albumin 4.6 g/dL (3.5-5.2) 01/16/25 03:25 Globulin 3.3 g/dL (1.3-4.6) 01/16/25 03:25 Urine Color Dark yellow (Yellow) A 01/16/25 04:11 Urine Appearance Clear (CLEAR) 01/16/25 04:11 Urine pH 6.5 (5-7) 01/16/25 04:11 Ur Specific [place] 1.020 (1.005-1.030) 01/16/25 04:11 Urine Protein 3+ (Negative) H 01/16/25 04:11 Urine Glucose (UA) Norm (Normal) 01/16/25 04:11 Urine Ketones 1+ (Negative) H 01/16/25 04:11 Urine Blood 2+ (Negative) H 01/16/25 04:11 Urine Nitrate Positive (Negative) A 01/16/25 04:11 Urine Bilirubin 1+ (Negative) H 01/16/25 04:11 Urine Urobilinogen 8 mg/dL (Negative) H 01/16/25 04:11 Ur Leukocyte Esterase Negative (Negative) 01/16/25 04:11 Urine RBC 3-5 /hpf (0-2) 01/16/25 04:11 Urine WBC 0-4 /hpf (0-5) H 01/16/25 04:11 Ur Squamous Epith Cells 0-2 /hpf (0-5) 01/16/25 04:11 Amorphous Sediment Not Reportable 01/16/25 04:11 Urine Bacteria Trace /hpf (NONE) 01/16/25 04:11 Hyaline Casts 0-4 /lpf H 01/16/25 04:11 Urine Mucus 1+ /hpf 01/16/25 04:11 Salicylates < 0.3 mg/dL (3-10) L 01/16/25 03:25 Urine Opiates Screen Negative ng/mL (Negative) 01/16/25 04:11 Acetaminophen < 5.0 ug/mL (10-30) L 01/16/25 03:25 Ur Barbiturates Screen Negative ng/mL (Negative) 01/16/25 04:11 Ur Phencyclidine Scrn Negative ng/mL (Negative) 01/16/25 04:11 Ur Amphetamines Screen Negative ng/mL (Negative) 01/16/25 04:11 U Benzodiazepines Scrn Positive ng/mL (Negative) H 01/16/25 04:11 Urine Cocaine Screen Negative ng/mL (Negative) 01/16/25 04:11 U Marijuana (THC) Screen Negative ng/mL (Negative) 01/16/25 04:11 Ethyl Alcohol < 10 mg/dL (0-10) 01/16/25 03:25 All radiology interpretation(s) finalized by discharge Discharge Plan Discharge Patient Disposition: Home Clinical Impression: Alcohol withdrawal delirium Condition: Stable Prescriptions: No Action epinephrine [EpiPen 2-Evangelist] 0.3 mg/0.3 mL auto-injector 0.3 mg IM Q20M PRN (Reason: anaphylaxis) Qty: 2 0RF Rx Instructions: for 2 doses amlodipine 5 mg tablet 7.5 mg PO DAILY Qty: 135 3RF turmeric 400 mg Capsule 200 mg PO DAILY folic acid 1 mg Tablet 1 mg PO DAILY Qty: 30 0RF Thera 400 mcg Tablet 1 tab PO DAILY Qty: 30 0RF Discharge Orders: Discharge ED (Routine); Ordered 01/16/25 Ordered By: Ger Hayes Referrals: Joey Alvarado MD [Primary Care Provider, Family Practice] - 1-3 days Patient Instructions: Alcohol Withdrawal (ED), Opioid Safety, Pain Management, Patient Portal & Ino Instructions Activity Restrictions/Additional Instructions: 3 days out from your last ingestion, the worst of your withdrawal symptoms are finished. Your seizure risk is low at this point. Please consider outpatient or inpatient alcohol rehab as your next step. Return for any problems. 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
[2025-01-16 04:18] LABS: Alanine Aminotransferase 62 U/L (0-41); Albumin Level 4.6 g/dL (3.5-5.2); Alkaline Phosphatase 44 U/L (40-130); Anion Gap 24.2 (5-19); Aspartate Amino Transferase 116 U/L (0-40); Blood Urea Nitrogen 16 mg/dL (8-23); Calcium 9.7 mg/dL (8.5-10.5); Carbon Dioxide 19 mmol/L (22-29); Chloride 91 mmol/L (98-107); Globulin 3.3 g/dL (1.3-4.6); Glucose 121 mg/dL (65-115); Osmolality Calculated 274 mOsm/kg (285-295); Potassium 3.2 mmol/L (3.5-5.1); Sodium 131 mmol/L (136-145); Total Protein 7.9 g/dL (6.6-8.7)
[2025-01-16 04:19] LABS: Acetaminophen < 5.0 ug/mL (10-30); Alcohol Level < 10 mg/dL (0-10); Creatinine Clr Calc Pharmacy 89.4864; Salicylate < 0.3 mg/dL (3-10)
--- NOTE | 2025-01-16 04:33 | CTR_ITS ---
PROCEDURE INFORMATION: Exam: CT Abdomen And Pelvis With Contrast Exam date and time: 01/16/2025 4:48 AM Age: 74 years old Clinical indication: Abnormal findings; Abnormal lab test; Other: Hyperbilirubinemia; PT arrives via [facility] from home, he has been trying to detox from alcohol and had last drink of Thursday, this evening he started seeing cats and children who were not there and called family for help. PT states he has drank 2-3 liters of vodka a week for about 20 years TECHNIQUE: Imaging protocol: Computed tomography of the abdomen and pelvis with contrast. Radiation optimization: All CT scans at this facility use at least one of these dose optimization techniques: automated exposure control; mA and/or kV adjustment per patient size (includes targeted exams where dose is matched to clinical indication); or iterative reconstruction. Contrast material: [id number]; Contrast volume: 100 ml; Contrast route: INTRAVENOUS (IV); COMPARISON: CT abdomen pelvis w con* [id number] 12/26/2022 2:42 PM RADIATION DOSE METRICS: Total DLP (mGy-cm): 610.53 FINDINGS: Lungs: Multiple nodules are again seen scattered throughout both lungs, the largest on the right measuring approximately 0.8 cm. Heart: Normal heart size. Coronary atherosclerotic calcifications seen. No pericardial effusion. Liver: There or ill-defined foci of decreased attenuation adjacent to the falciform ligament, , posterior left hepatic lobe and adjacent to the gallbladder bed, consistent with focal fatty infiltration. The liver is otherwise unremarkable. No cirrhotic features. No discrete enhancing mass identified. Gallbladder and biliary ducts: Normal. No calcified stones. No ductal dilation. Pancreas: Normal. No ductal dilation. Spleen: Small accessory splenule is noted in the left upper quadrant. The spleen is unremarkable. Adrenal glands: Unchanged left adrenal gland mass measuring approximately 3.2 cm, likely representing adenoma. The right adrenal gland is unremarkable. Kidneys and ureters: Symmetric enhancement of the kidneys. There are bilateral subcentimeter foci of decreased attenuation, which are too small to characterize. Stomach and bowel: Unremarkable. No obstruction. No mucosal thickening. Appendix: No evidence of appendicitis. Intraperitoneal space: Unremarkable. No free air. No significant fluid collection. Vasculature: No aortic aneurysm. No aortic dissection. Mild diffuse atherosclerotic disease is present. Lymph nodes: Unremarkable. No enlarged lymph nodes. Urinary bladder: Unremarkable as visualized. Reproductive: Unremarkable as visualized. Bones/joints: Degenerative changes of the spine seen. Old healed fracture deformity noted in the lateral left ribcage. Chronic bilateral L5 pars fracture resulting in grade 1 anterolisthesis seen. Soft tissues: Unremarkable. CT/CT abdomen pelvis w con* [id number] IMPRESSION: 1. No acute findings. 2. Nonspecific scattered bilateral pulmonary nodules. Dedicated evaluation with CT chest recommended. 3. Stable left adrenal mass, likely representing adenoma. 4. Ill-defined foci of decreased attenuation in the liver, likely representing focal fatty infiltration. Further evaluation with contrast enhanced abdomen MRI should be considered in the adequate clinical setting.
[2025-01-16] MEDS: iohexol 350 mg/mL 500 mL Btl (per mL) IV (04:52)
[2025-01-16 04:58] LABS: Specific Gravity, Urine 1.020 (1.005-1.030)
[2025-01-16 04:59] LABS: Glucose Urine UA Norm (Normal); Nitrate Urine Positive (Negative); UA Manual Slide Review YES
[2025-01-16 05:05] LABS: PCP Screen Urine Negative (Negative)
[2025-01-16 05:20] LABS: Add Urine Microscopic? YES
[2025-01-16 05:26] VITALS: BP 158/113; PULSE 86; O2SAT 100
[2025-01-16 06:38] VITALS: BP 158/113; PULSE 84; O2SAT 99
[2025-01-16] MEDS: potassium chloride oral liq 20 mEq/15 mL UDC 40 MEQ PO (06:41)
[2025-01-16] MEDS: thiamine 100 mg/mL 2mL SDV IVP (07:12)
[2025-01-16 08:24] VITALS: BP 158/98; PULSE 86; RESP 16; TEMP 36.8; O2SAT 99
[2025-01-16 09:32] VITALS: BP 126/88; PULSE 82; RESP 16; O2SAT 98
== END 2025-01-16 09:26 | disposition home or self-care (01) ==
PROVIDERS: Emergency Provider Emergency Medicine; Family Provider Family Medicine; PCP Family Medicine
DX: F10.231 Alcohol dependence with withdrawal delirium (principal); Y90.0 Blood alcohol level of less than 20 mg/100 ml; I10 Essential (primary) hypertension
CPT/HCPCS: 74177; 80053; 80306; 80307; 81001; 85025; 93005; 96361; 96374; 99285; J3411; J7030; J9999

== ENCOUNTER → 2025-01-24 14:52 | Outpatient (BNVA) | payer MEDICARE, SELFPAY | PROVIDERS: Family Provider Family Medicine; PCP Family Medicine; Visit Provider Family Medicine | DX: Z51.81 Encounter for therapeutic drug level monitoring (principal); R74.01 Elevation of levels of liver transaminase levels; E87.1 Hypo-osmolality and hyponatremia; R30.0 Dysuria; R10.32 Left lower quadrant pain; R10.31 Right lower quadrant pain | CPT/HCPCS: 80053; 81000; 86618; 86666; 86757; 87086 ==